=== PATIENT | male | born 1965 | race Two or more races ===

== ENCOUNTER 2019-05-09 14:40 | Emergency (ER) | payer MEDICARE ==
--- NOTE | 2019-05-09 15:33 | ED Physician Chart ---
ED Chief Complaint/HPI - Patient Information Date Seen:: 05/09/19 Time Seen:: 15:28 Chief Complaint:: Weakness History of Present Illness:: 53 yo male with history of chronic back pain, became homeless after his RV broke down on the way from [place] to [place]. Pt was exhausted after walking in the hot weather. Allergies:: Allergies Allergy/AdvReac Type Severity Reaction Status Date / Time No Known Allergies Allergy Verified 05/09/19 15:09 Vitals:: Vital Signs - 8 hr 05/09/19 15:09 Temp 99.5 F HR 79 RR 16 BP 136/89 O2 Sat % 97 ED Review of Systems - Review of Systems General/Constitutional: No fever, Chills Skin: No skin lesions Head: Headache Eyes: No pain ENT: No earache Neck: No neck pain Cardio Vascular: No chest pain Pulmonary: No SOB GI: Nausea, Vomiting, No diarrhea, Pain G/U: No dysuria Musculoskeletal: Bone or joint pain Neurological: No focal symptoms ED Past Medical History - Past Medical History Past Medical History: Other (chronic back pain) Social History: Smoker, Alcohol, Illicit Drug Use Surgical History: None Family Medical History - Family Member Mother History Unknown: Yes ED Physical Exam - Physical Examination General/Constitutional: Awake, Alert Head: Atraumatic Eyes: PERRL, EOMI Skin: No ecchymosis ENMT: Nasal exam nl Neck: No nuchal rigidity Respiratory: No Wheeze/Rhonchi/Rales Cardio Vascular: RRR, No murmur, gallop, rubs, NL S1 S2 GI: No tenderness/rebounding/guarding Extremities: normal strength in all extremities Neuro/Psych: No focal deficits ED Labs/Radiology/EKG Results - Lab Results Results: Laboratory Results - last 24 hr 05/09/19 05/09/19 05/09/19 15:50 15:50 15:53 WBC 7.0 RBC 4.29 L Hgb 12.9 Hct 39.4 L MCV 91.7 MCH 30.1 H MCHC Differential 32.9 RDW 13.6 Plt Count 212 MPV 8.6 Neutrophils % 69.0 Lymphocytes % 23.5 Monocytes % 6.5 Eosinophils % 0.7 Basophils % 0.2 PT INR PTT (Actin FS) Sodium Potassium Chloride Carbon Dioxide Anion Gap BUN Creatinine Est GFR ( Amer) Est GFR (Non-Af Amer) BUN/Creatinine Ratio Glucose Calcium Total Bilirubin AST ALT Alkaline Phosphatase Troponin I B-Natriuretic Peptide Total Protein Albumin Globulin Albumin/Globulin Ratio Urine Source CLEAN C Urine Color YELLOW Urine Clarity CLEAR Urine pH 6.0 Ur Specific [place] 1.010 Urine Protein NEGATIVE Urine Glucose (UA) NEGATIVE Urine Ketones NEGATIVE Urine Blood NEGATIVE Urine Nitrate NEGATIVE Urine Bilirubin NEGATIVE Urine Urobilinogen 0.2 Ur Leukocyte Esterase NEGATIVE Urine RBC NONE SEEN Urine WBC 0-2 Ur Epithelial Cells FEW Urine Bacteria 1+ H Urine Mucus FEW Urine Opiates Screen NEGATIVE Urine Methadone Screen NEGATIVE Ur Barbiturates Screen NEGATIVE Ur Tricyclics Screen NEGATIVE Ur Phencyclidine Scrn NEGATIVE Amphetamines Screen NEGATIVE U Methamphetamines Scrn NEGATIVE U Benzodiazepines Scrn NEGATIVE U Cocaine Metab Screen NEGATIVE U Cannabinoids Screen NEGATIVE 05/09/19 05/09/19 05/09/19 15:53 15:53 15:53 WBC RBC Hgb Hct MCV MCH MCHC Differential RDW Plt Count MPV Neutrophils % Lymphocytes % Monocytes % Eosinophils % Basophils % PT 9.4 L INR 0.90 PTT (Actin FS) 25.6 L Sodium 142 Potassium 3.4 L Chloride 107 Carbon Dioxide 24.2 Anion Gap 14.2 BUN 9 Creatinine 0.9 Est GFR ( Amer) > 60.0 Est GFR (Non-Af Amer) > 60.0 BUN/Creatinine Ratio 10.0 Glucose 95 Calcium 8.7 Total Bilirubin 0.4 AST 47 H ALT 43 Alkaline Phosphatase 45 Troponin I B-Natriuretic Peptide 19.6 Total Protein 6.1 Albumin 4.0 L Globulin 2.1 Albumin/Globulin Ratio 1.9 H Urine Source Urine Color Urine Clarity Urine pH Ur Specific [place] Urine Protein Urine Glucose (UA) Urine Ketones Urine Blood Urine Nitrate Urine Bilirubin Urine Urobilinogen Ur Leukocyte Esterase Urine RBC Urine WBC Ur Epithelial Cells Urine Bacteria Urine Mucus Urine Opiates Screen Urine Methadone Screen Ur Barbiturates Screen Ur Tricyclics Screen Ur Phencyclidine Scrn Amphetamines Screen U Methamphetamines Scrn U Benzodiazepines Scrn U Cocaine Metab Screen U Cannabinoids Screen 05/09/19 15:53 WBC RBC Hgb Hct MCV MCH MCHC Differential RDW Plt Count MPV Neutrophils % Lymphocytes % Monocytes % Eosinophils % Basophils % PT INR PTT (Actin FS) Sodium Potassium Chloride Carbon Dioxide Anion Gap BUN Creatinine Est GFR ( Amer) Est GFR (Non-Af Amer) BUN/Creatinine Ratio Glucose Calcium Total Bilirubin AST ALT Alkaline Phosphatase Troponin I 0.01 B-Natriuretic Peptide Total Protein Albumin Globulin Albumin/Globulin Ratio Urine Source Urine Color Urine Clarity Urine pH Ur Specific [place] Urine Protein Urine Glucose (UA) Urine Ketones Urine Blood Urine Nitrate Urine Bilirubin Urine Urobilinogen Ur Leukocyte Esterase Urine RBC Urine WBC Ur Epithelial Cells Urine Bacteria Urine Mucus Urine Opiates Screen Urine Methadone Screen Ur Barbiturates Screen Ur Tricyclics Screen Ur Phencyclidine Scrn Amphetamines Screen U Methamphetamines Scrn U Benzodiazepines Scrn U Cocaine Metab Screen U Cannabinoids Screen - Radiology Results Results: CXR: COPD, no focal consolidation - EKG Interpretations EKG Time:: 15:45 Rate & Rhythm: 74 bpm, sinus rhythm [place]: Normal axis Intervals: Borderline prolonged QT interval Comments:: Nonspecific T wave changes ED Assessment - Assessment General Assessment: Generalized weakness Hypokalemia Assessment/Comments:: CBC, CMP, BNP, Trop, UA, urine drug screen CXR, EKG KCL 40 mEq PO x 1 ED Septic Shock - . Is Septic Shock (SBP<90, OR Lactate>4 mmol\L) present?: No - <6hrs of presentation: Vital Signs: Vital Signs - 8 hr 05/09/19 15:09 Temp 99.5 F HR 79 RR 16 BP 136/89 O2 Sat % 97 ED Reassessment (Disposition) - Reassessment Reassessment Condition:: Improved - Aftercare/Follow up Instructions Notes:: D/c home F/u PCP or return to ER if symptoms worsen - Patient Disposition Discharge/Transfer:: Home
[2019-05-09] MEDS ORDERED: Pantoprazole 40 mg EC Tab PO STA (15:38)
[2019-05-09] MEDS ORDERED: Pantoprazole 40 mg EC Tab PO ONE (15:49)
[2019-05-09 16:06] LABS: HEMATOCRIT 39.4 % (41.0-60); HEMOGLOBIN 12.9 gm/dL (12-16); MEAN CELL VOLUME 91.7 fl (80-99); RED BLOOD COUNT 4.29 Mil/cmm (4.30-5.70)
[2019-05-09 16:07] LABS: % BASOPHILS 0.2 % (0.0-2.0); % EOSINOPHILS 0.7 % (0.0-5.0); % LYMPHOCYTES 23.5 % (20.0-50.0); % MONOCYTES 6.5 % (2.0-10.0); LYMPHOCYTE ABSOLUTE 1.6 Th/cmm (1.5-3.0); MEAN CORPUSCULAR HEMOGLOBIN 30.1 pg (26.0-30.0); MEAN CORPUSCULAR HGB CONC 32.9 pg (28.0-36.0); MONOCYTE ABSOLUTE 0.5 Th/cmm (0.3-1.0); NEUTROPHILE ABSOLUTE 4.9 Th/cmm (1.8-8.0); PLATELET COUNT 212 Th/cmm (150-400); RED CELL DISTRIBUTION WIDTH 13.6 % (11.5-20.0)
[2019-05-09 16:15] LABS: URINE SOURCE CLEAN C
[2019-05-09 16:19] LABS: INR 0.9 (0.5-1.4)
[2019-05-09 16:28] LABS: CHLORIDE 107 mEq/L (98-107); POTASSIUM SERUM 3.4 mEq/L (3.5-5.1); SODIUM SERUM 142 mEq/L (136-145)
[2019-05-09 16:28] LABS: AMPHETAMINE URINE NEGATIVE (NEGATIVE); BARBITURATES URINE NEGATIVE (NEGATIVE); BENZODIAZEPINES QUAL URINE NEGATIVE (NEGATIVE); CANNABINOID THC NEGATIVE (NEGATIVE); COCAINE METABOLITE QUAL URINE NEGATIVE (NEGATIVE); METHADONE URINE NEGATIVE (NEGATIVE); METHAMPHETAMINES QUAL URINE NEGATIVE (NEGATIVE); OPIATES (MORPHINE) QUAL. URINE NEGATIVE (NEGATIVE); PHENCYCLIDINE (PCP) URINE NEGATIVE (NEGATIVE); TRICYCLICS (TCA) QUAL. URINE NEGATIVE (NEGATIVE)
[2019-05-09 16:29] LABS: ALB/GLOB RATIO 1.9 (1.0-1.8); ALKALINE PHOSPHATASE 45 U/L (34-104); ANION GAP 14.2 (7.0-16.0); BILIRUBIN,TOTAL 0.4 mg/dL (0.3-1.0); BUN - UREA NITROGEN 9 mg/dL (7-25); CALCIUM SERUM 8.7 mg/dL (8.6-10.3); CARBON DIOXIDE 24.2 mEq/L (21.0-31.0); CREATININE - SERUM 0.9 mg/dL (0.7-1.3); GFR AFRICAN-AMERICAN > 60.0 ml/min (>90); GFR NON AFRICAN-AMERICAN > 60.0 ml/min; GLUCOSE 95 mg/dL (70-105); SGOT 47 U/L (13-39); SGPT/ALT 43 U/L (7-52); TOTAL PROTEIN,SERUM 6.1 gm/dL (6.0-8.3)
[2019-05-09 16:34] LABS: URINE CLARITY CLEAR (CLEAR); URINE COLOR YELLOW
[2019-05-09 16:35] LABS: URINE BILIRUBIN NEGATIVE (NEGATIVE); URINE BLOOD NEGATIVE (NEGATIVE); URINE GLUCOSE (UA) NEGATIVE (NEGATIVE); URINE KETONE NEGATIVE (NEGATIVE); URINE LEUKOCYTE ESTERASE NEGATIVE (NEGATIVE); URINE MICROSCOPIC INDICATED? YES; URINE NITRATE NEGATIVE (NEGATIVE); URINE PROTEIN NEGATIVE (NEGATIVE); URINE UROBILINOGEN 0.2 E.U./dL (0.2 - 1.0)
[2019-05-09 16:37] LABS: URINE BACTERIA 1+ /hpf (NONE SEEN); URINE EPITHELIAL CELLS FEW /lpf (FEW); URINE RBC NONE SEEN /hpf (0-5); URINE WBC 0-2 /hpf (0-5)
[2019-05-09] MEDS ORDERED: Potassium Chloride 20 mEq ER Tab PO ONE ×2 (16:51→17:07)
--- NOTE | 2019-05-10 09:24 | Diagnostic Imaging Report ---
CHEST X-RAY: AP view INDICATION: Shortness of breath COMPARISON: None FINDINGS: There are mild chronic lung changes. No focal consolidation or effusions. There is a 4 mm calcified nodule of the left lower lung zone. Heart size is normal. Osseous structures are intact. IMPRESSION: No focal consolidation identified. 4 mm calcified nodular the left lower lung zone, most patient access representative of a granuloma.
== END 2019-05-09 17:15 | disposition home or self-care (01) ==
LOC: ER 14:40
DX: E87.6 Hypokalemia (principal); R53.1 Weakness; F17.200 Nicotine dependence, unspecified, uncomplicated; Z59.0 Homelessness
CPT/HCPCS: 36415-UA; 71045-TC; 80053-TC; 80307; 81001-TC; 83880-TC; 84484-TC; 85025-TC; 85610-TC; 93005; Z7610